=== PATIENT | female | born 1980 | race Caucasian/White ===

== ENCOUNTER → 2016-12-16 | Outpatient (CLI) | payer MEDICAID | LOC: COL.RAD 15:28 | DX: E04.2 Nontoxic multinodular goiter (principal) ==

== ENCOUNTER → 2017-01-05 | Outpatient (CLI) | payer MEDICAID ==
[~2017-01-05] VITALS: Ht 162.6 cm; Wt 81.8 kg
[~2017-01-05] MED LIST: MULTI VITAMINS1 TAB PO
[2017-01-05 10:11] VITALS: BP 129/69; PULSE 60
[2017-01-05 11:23] VITALS: BP 132/62; PULSE 60
== END ==
LOC: COL.RAD 09:43
DX: E04.1 Nontoxic single thyroid nodule (principal)
CPT/HCPCS: 25581

== ENCOUNTER → 2020-01-31 | Outpatient (CLI) | payer MEDICAID | LOC: MC.RAD 09:29 | DX: Z12.31 Encounter for screening mammogram for malignant neoplasm of breast (principal) ==